=== PATIENT | female | born 1980 | race American Indian/Alaskan Native ===

== ENCOUNTER 2017-08-14 07:11 | Day surgery (SDC) | payer BC ==
--- NOTE | 2017-08-10 13:51 | History and Physical Report ---
History of Present Illness Date of examination: 08/10/17 History of present illness: Patient desires sterilization.Discuss the permanency of sterilization. High risk of regret and 0.5 to 1% risk of failure. Discussed the different risk of abdominal versus vaginal approaches Patient desires laparoscopic tubal ligation Vital Signs: Patient Profile: 37 Years Old Female Height: 65 inches Weight: 248 pounds BMI: 41.26 BSA: 2.17 Past History : 4 Term Births: 4 Premature Births: 0 Living Children: 4 Para: 4 Mult. Births: 0 Prev : 0 Prev. attempt? 0 Aborta: 0 Elect. Ab: 0 Spont. Ab: 0 Ectopics: 0 # 1 Delivery date: 01/30/1999 Weeks Gestation: 40 labor: no Delivery type: Hours of labor: 9 Anesthesia type: none Delivery location: [facility] Infant Sex: Female weight: 7-8 Name: Dg # 2 Delivery date: 06/15/2003 Weeks Gestation: 40 Delivery type: Hours of labor: 24 Anesthesia type: IV Delivery location: [place] Sex: Female weight: 7-14 Name: Aubrie # 3 Delivery date: 04/05/2012 Weeks Gestation: 40 Delivery type: Hours of labor: 10 Anesthesia type: IV Delivery location: [place] Sex: Female weight: 7-0 Name: Camelia Comments: GDM diet controlled # 4 Delivery date: 05/29/2017 Weeks Gestation: 38+5 Delivery type: Vaginal Hours of labor: 5 Anesthesia type: epidural Delivery location: [facility] Sex: female weight: 6.94 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 of genital herpes: no Partner hx. of genital herpes: no Hx of STD: none Current Allergies (reviewed today): No known allergies Past Medical History: Negative Past Medical History Past Surgical History: Negative Past Surgical History Family History Summary: Other family member - Has No Family History of Ovarvian Cancer - Entered On: 08/10/2017 Other family member - Has No Family History of Colon Cancer - Entered On: 2016 Other family member - Has No Family History of Breast Cancer - Entered On: 2016 Other family member - Has Family History of Hypertension - Entered On: 08/10/2017 Other family member - Has Family History of Diabetes - Entered On: 08/10/2017 Risk Factors: Smoked Tobacco Use: Never smoker Smokeless Tobacco Use: Never Passive smoke exposure: no Drug use: no HIV high-risk behavior: no Alcohol use: no Exercise: no Seatbelt use: 100 % Review of Systems General Complains of fatigue. Denies fever, chills, sweats, anorexia, weakness, malaise, weight loss and sleep disorder. Denies vaginal discharge, incontinence, dysuria, hematuria, urinary frequency, amenorrhea, menorrhagia, abnormal vaginal bleeding, pelvic pain, genital sores, decreased libido, painful periods, painful sex, urinary urgency, hot flashes, vaginal dryness, vaginal itching and vaginal odor. CV Denies chest pains, palpitations, syncope, dyspnea on exertion, orthopnea, PND and peripheral edema. Resp Denies cough, dyspnea at rest, excessive sputum, hemoptysis, wheezing and pleurisy. GI Denies nausea, vomiting, diarrhea, constipation, change in bowel habits, abdominal pain, melena, hematochezia, jaundice, gas/bloating, indigestion/ heartburn, dysphagia and odynophagia. Breast Denies left breast lump, right breast lump, nipple discharge, bloody discharge from nipple, breast pain, abnormal mammogram and breast enlargement. Psych Denies depression, anxiety, irritability and mood swings. [Labs In-House] Past History Past Medical History: other (See HPI) Past Surgical History: Other (See HPI) Social history: other (See HPI) Family history: other (See HPI) Medications and Allergies Allergies Allergy/AdvReac Type Severity Reaction Status Date / Time No Known Allergies Allergy Verified 05/29/17 15:09 Home Medications Medication Instructions Recorded Confirmed Last Taken Type Ibuprofen [Motrin 800 MG tab] 800 mg PO Q8HR PRN #30 tablet 05/29/17 Unknown Rx Review of Systems Constitutional: other (See HPI) Exam - Physical Exam Narrative exam: HEENT: normocephalic, no lesions or deformities Neck/Thyroid: supple, thyroid normal Skin no abnormal lesions or rashes Chest: respiratory effort normal, clear to auscultation Breasts: skin/areolae normal, no masses, no nipple discharge, no erythema/warmth /tenderness, and axillae normal. 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 Cervix: normal appearance, no lesions. Uterus: unable to palpate due to obesity Adnexae: no masses or tenderness Rectovaginal: exam defered Assessment and Plan - Patient Problems (1) Encounter for sterilization Status: Acute Plan to address problem: Discuss the risks of the surgery including infection, bleeding possibly heavy enough to require a blood transfusion, possible damage to adjacent organs. Discuss permanent nature of the procedure and the 1% failure rate. Discuss of possibility of laparotomy needed (2) Body mass index (BMI) 40.0-44.9, adult Status: Chronic
[~2017-08-14 07:11] MED LIST: NACL 0.9% 1000 ML 1,000 ML IV SCH
[2017-08-14 08:16] LABS: Hematocrit 40.4 % (30.3-42.9); Hemoglobin 13.1 gm/dl (10.1-14.3)
--- NOTE | 2017-08-14 08:31 | Anesthesia Day of Surgery ---
Anesthesia Day of Surgery - Day of Surgery Patient Examined: Yes Patient H&P Reviewed: Yes Patient is NPO: Yes
--- NOTE | 2017-08-14 08:31 | Anesthesia Consultation ---
Anesthesia Consult and Med Hx Date of service: 08/14/17 - Airway Anesthetic Teeth Evaluation: Good ROM Head & Neck: Adequate Mental/Hyoid Distance: Adequate Mallampati Class: Class III Intubation Access Assessment: Possibly Difficult - Pulmonary Exam CTA: Yes - Cardiac Exam Cardiac Exam: RRR - Pre-Operative Health Status ASA Pre-Surgery Classification: ASA2 Proposed Anesthetic Plan: General - Pulmonary Hx Asthma: No COPD: No Hx Pneumonia: No - Cardiovascular System Hx Hypertension: No - Central Nervous System Hx Seizures: No Hx Psychiatric Problems: No - Endocrine Hx Renal Disease: No Hx End Stage Renal Disease: No Hx Hypothyroidism: No Hx Hyperthyroidism: No - Hematic Hx Anemia: No Hx Sickle Cell Disease: No - Other Systems Hx Alcohol Use: No Hx Cancer: No Hx Obesity: Yes
[2017-08-14] MEDS ORDERED: DILAUDID IV PRN (08:32)
[2017-08-14] MEDS ORDERED: NACL 0.9% 1000 ML 1,000 ML IV SCH (09:00)
[2017-08-14] MEDS ORDERED: VERSED IV NR (09:00)
[2017-08-14] MEDS ORDERED: PEPCID PO NR (09:00)
[2017-08-14] MEDS ORDERED: DIPRIVAN 10 MG/ML IV ONE (09:13)
[2017-08-14] MEDS ORDERED: MARCAINE 0.5% INFILTRATI ONE ×4 (09:14→10:02)
[2017-08-14] MEDS ORDERED: DILAUDID ONE (09:14)
[2017-08-14] MEDS ORDERED: ZEMURON IV ONE (09:14)
[2017-08-14] MEDS ORDERED: XYLOCAINE MPF 2% ONE (09:17)
[2017-08-14] MEDS ORDERED: PERCOCET 5/325 PO PRN ×2 (09:30→10:37)
[2017-08-14] MEDS ORDERED: ZOFRAN ONE (09:45)
[2017-08-14] MEDS ORDERED: NEOSTIGMINE ONE (09:50)
[2017-08-14] MEDS ORDERED: ROBINUL ONE (09:50)
[2017-08-14] MEDS ORDERED: TORADOL ONE (09:53)
[2017-08-14] MEDS ORDERED: DECADRON ONE (09:53)
[2017-08-14] MEDS ORDERED: NACL 0.9% IR ONE (09:56)
--- NOTE | 2017-08-14 10:09 | Operative Report ---
Operative Report Operative Report: Date: 08/14/2017 Pre-operative diagnosis: Patient desires permanent sterilization Post-operative diagnosis: Same Procedure name(s): Laparoscopic bilateral tubal ligation with Falope-Rings Surgeon: Danis Gu MD Engineering Administrator: [] Anesthesia: General endotracheal EBL: Minimal Complications: None Findings: Patient with uterus approximately 8-10 weeks in size with normal fallopian tubes bilaterally Specimen(s): None Patient was brought in the operating room. General anesthesia was induced without difficulty. She was placed in dorsal lithotomy position. Prepped and draped in usual sterile manner. Her urinary bladder with was emptied with a red rubber catheter. Speculum placed in her vagina and Sargis uterine manipulator was placed for uterine manipulation. Attention was then switched to the patient's abdomen. An infra-umbilical incision was made with a scalpel. This incision was spread with a hemostat. A 5 mm trocar was placed in this incision while lifting high the abdominal wall. Intra-abdominal presence was verified directly with the laparoscope. The patient was then insufflated to approximately 3 L of CO2 gas. The patient's findings as noted above. An accessory puncture was made suprapubically. The 8 mm trocar was placed through this incision under direct visualization with no evidence of internal organ damage. Each of the fallopian tube were identified by its fimbriated end. A portion approximately 1-2 cm from each cornua was grasped with the Falope ring applicator. Falope-Rings were placed without any difficulty bilaterally. At this time all instruments were removed. The patient was deinsufflated. The skin incisions were closed subcuticular with 4-0 Vicryl. Marcaine was given subcuticularly for postoperative pain relief. The patient tolerated procedure well. She was awakened in the operating room and accompanied to the recovery room in good condition.
--- NOTE | 2017-08-14 10:10 | Short Stay Summary ---
Short Stay Documentation Date of service: 08/14/17 - History Principal diagnosis: desires sterilization H&P: dictated Past Medical History: other (See HPI) Past Surgical History: Other (See HPI) Social history: other (See HPI) - Allergies and Medications Current Medications: Allergies No Known Allergies Allergy (Verified 08/12/17 15:57) Home Medications Medication Instructions Recorded Confirmed Last Taken Type Pnv,Calcium 72/Iron/Folic Acid 1 tab PO DAILY 08/12/17 08/14/17 08/12/17 History [Pnv Plus Multivit Tab] oxyCODONE /ACETAMINOPHEN [Percocet 1 - 2 tab PO Q4H PRN #30 tablet 08/14/17 Unknown Rx 5/325 mg] Active Medications Famotidine (Pepcid) 20 mg PO PREOP NR Stop: 08/14/17 16:00 Last Admin: 08/14/17 08:50 Dose: 20 mg Hydromorphone HCl (Dilaudid) 0.5 mg IV Q10MIN PRN PRN Reason: Pain , Severe (7-10) Stop: 08/14/17 15:00 Sodium Chloride (Nacl 0.9% 1000 Ml) 1,000 mls @ 125 mls/hr IV DIRECT MUNIRA Last Admin: 08/14/17 08:30 Dose: 125 mls/hr Midazolam HCl (Versed) 2 mg IV PREOP NR Stop: 08/14/17 23:59 Last Admin: 08/14/17 08:50 Dose: 2 mg - Brief post op/procedure progress note Date of procedure: 08/14/17 (see dictated op note) - Hospital course Hospital course: Patient was admitted underwent the above him procedure without any complications. Patient will be discharged with follow-up in office in 1-2 weeks for postop check. - Disposition Condition at discharge: Good Disposition: [id number] TO HOME OR SELFCARE - Discharge Diagnoses (1) Encounter for sterilization Status: Acute (2) Body mass index (BMI) 40.0-44.9, adult Status: Chronic Short Stay Discharge Plan Activity: advance as tolerated Diet: regular Wound: open to air Follow up with: ELLE BOONE MD [Primary Care Provider] - 7 Days Prescriptions: oxyCODONE /ACETAMINOPHEN [Percocet 5/325 mg] 1 - 2 tab PO Q4H PRN #30 tablet PRN Reason: Pain, Moderate
--- NOTE | 2017-08-14 10:31 | Post Anesthesia Evaluation ---
- Post Anesthesia Evaluation Patient Participated: Yes Airway Patent: Yes Stable Respiratory Function: Yes Nausea/Vomiting: No Temp > 96.8F: Yes Pain Manageable: Yes Adequeate Hydration: Yes Anesthesia Complications: No Block Receding Appropriately: Not Applicable Patient on Ventilator: No
[2017-08-14 13:12] VITALS: BP 134/75
== END 2017-08-14 12:47 | disposition home or self-care (01) ==
LOC: OR 07:11
PROVIDERS: ATTEND Obstetrics & Gynecology
DX: Z30.2 Encounter for sterilization (principal); E66.9 Obesity, unspecified; Z68.41 Body mass index [BMI] 40.0-44.9, adult; Z79.899 Other long term (current) drug therapy
CPT/HCPCS: 36415 ×2; 58671; 81025 ×2; 85014 ×2; 85018 ×2; J1100; J1170; J1885; J2250; J2405; J2704; J2710; J7030